=== PATIENT | male | born 1950 | race Caucasian/White ===

== ENCOUNTER 2022-01-08 13:50 | Inpatient (IN) | payer OTHER ==
[~2022-01-08] VITALS: Ht 188 cm; Wt 85.1 kg
[~2022-01-08 13:50] MED LIST: ALBU.083IS IH; ALBU90OI INH; BUDE200IP IH; BUDE6HFA; BUDE6HFA INH; CALCAVITD PO; CAPS28.3TC TP; CHLORTHALIDONE PO; CYCL10 PO; Colace100 MG PO; DOCU100 PO; FISH1000 PO; FLUO10 PO; Flomax0.4 MG PO; GUAI600T33 PO; HYDR1TAB94; Hair, Skin & N1 EACH PO; Ipratropium Bro30 ML INH; LOSA50 PO; Milk Of Ma400 MG/5 M PO; Mucinex600 MG; Norco 5-325 Ta1 EACH PO; Norvasc2.5 MG PO; OMEG1CAP30 PO; OSEL75CA PO; OXYACE5T PO; OXYC10ER PO; OXYC5 PO; PRED1SU BOTHEYES; PRED20 PO; RANI150 PO; SULTRIDS PO; Senna8.6 M1 PO; TAMS.4ER; TIOT18 IH; TIOT18 INH; VARE1 PO; VITAMIN B122500 MCG PO; ZOLP5 PO
[2022-01-08 14:30] LABS: BASOPHILS ABSOLUTE AUTO 0.04 K/mm3 (0.00-0.23); BASOPHILS PERCENT AUTO 0 % (0-2); EOSINOPHILS ABSOLUTE AUTO 0.45 K/mm3 (0.00-0.68); EOSINOPHILS PERCENT AUTO 3 % (0-6); Hematocrit 39.8 % (37.0-53.0); Hemoglobin 13.9 g/dL (13.5-17.5); IMMATURE GRAN ABSOLUTE AUTO 0.06 K/mm3 (0.00-0.10); IMMATURE GRAN PERCENT AUTO 1 % (0-1); LYMPHOCYTES ABSOLUTE AUTO 0.69 K/mm3 (0.84-5.20); LYMPHOCYTES PERCENT AUTO 5 % (21-46); MONOCYTES ABSOLUTE AUTO 0.93 K/mm3 (0.16-1.47); MONOCYTES PERCENT AUTO 7 % (4-13); Mean Corpuscular HGB 30.3 pg (26.0-34.0); Mean Corpuscular HGB Conc 34.9 g/dL (31.5-36.5); Mean Corpuscular Volume 87 fL (80-100); Mean Platelet Volume 9.3 fL (9.1-12.4); NEUTROPHILS ABSOLUTE AUTO 11.12 K/mm3 (1.96-9.15); NEUTROPHILS PERCENT AUTO 84 % (41-73); Platelet Count 344 K/mm3 (150-400); RDW Coefficient Variation 14.1 % (11.7-14.2); RDW Standard Deviation 45.1 fL (35.1-46.3); Red Blood Cell Count 4.58 M/mm3 (4.30-5.90); White Blood Cell Count 13.29 K/mm3 (4.00-11.30)
[2022-01-08 14:49] LABS: Albumin, Blood 3.1 g/dL (3.4-5.0); Albumin/Globulin Ratio 0.7 (0.8-1.8); Bilirubin, Total 0.9 mg/dL (0.1-1.0); Bun/Creatinine Ratio 25.3 (12.0-20.0); Creatinine, Blood 0.79 mg/dL (0.60-1.20); Globulin, Blood 4.7 g/dL (2.2-4.0); Potassium, Blood 3.5 mmol/L (3.5-5.5); Total Protein, Blood 7.8 g/dL (6.4-8.2)
[2022-01-08 16:10] LABS: Influenza A, PCR NEGATIVE (NEGATIVE); Influenza B, PCR NEGATIVE (NEGATIVE); Resp Syncytial Virus, PCR NEGATIVE (NEGATIVE); SARS-Cov-2 (COVID-19) PCR, MMC NEGATIVE (NEGATIVE)
[2022-01-08] MEDS ORDERED: ZOCOR20 MG PO (16:36)
[2022-01-08] MEDS ORDERED: Pulmicort Fle180 MCG INH ×2 (16:36→21:58)
[2022-01-08] MEDS ORDERED: AMLO5 PO (16:37)
[2022-01-08] MEDS ORDERED: TAMS.4ER PO (16:37)
[2022-01-08] MEDS ORDERED: ALBU2.5V5 INH (16:38)
[2022-01-08] MEDS ORDERED: OXAYDO5 M2 PO (16:38)
[2022-01-08] MEDS ORDERED: CALCIUM 250-D1 EAC1 PO (21:59)
[2022-01-08] MEDS ORDERED: CYCL10 PO (22:07)
[2022-01-08] MEDS ORDERED: DICLOFENAC SOD100 GM TOP (22:08)
[2022-01-08] MEDS ORDERED: LIDOCAINE15 GM TOP (22:10)
[2022-01-08] MEDS ORDERED: MELO7.5 PO (22:10)
[2022-01-09 05:20] LABS: BASOPHILS ABSOLUTE AUTO 0.03 K/mm3 (0.00-0.23); BASOPHILS PERCENT AUTO 0 % (0-2); EOSINOPHILS PERCENT AUTO 0 % (0-6); Hematocrit 39.3 % (37.0-53.0); Hemoglobin 13.5 g/dL (13.5-17.5); IMMATURE GRAN ABSOLUTE AUTO 0.06 K/mm3 (0.00-0.10); IMMATURE GRAN PERCENT AUTO 1 % (0-1); LYMPHOCYTES ABSOLUTE AUTO 0.65 K/mm3 (0.84-5.20); LYMPHOCYTES PERCENT AUTO 5 % (21-46); MONOCYTES ABSOLUTE AUTO 0.28 K/mm3 (0.16-1.47); MONOCYTES PERCENT AUTO 2 % (4-13); Mean Corpuscular HGB 29.9 pg (26.0-34.0); Mean Corpuscular HGB Conc 34.4 g/dL (31.5-36.5); Mean Corpuscular Volume 87 fL (80-100); Mean Platelet Volume 9.6 fL (9.1-12.4); NEUTROPHILS PERCENT AUTO 92 % (41-73); Platelet Count 359 K/mm3 (150-400); RDW Standard Deviation 44.9 fL (35.1-46.3); Red Blood Cell Count 4.51 M/mm3 (4.30-5.90); White Blood Cell Count 12.32 K/mm3 (4.00-11.30)
--- NOTE | 2022-01-09 05:30 | NUR ---
PRODUCTION WELDER SUMMARY ADMITTED FOR PNA AND SEPSIS. PT IS A FULL CODE. HE RECEIVED ONE BAG OF NS THAT COMPLETED THIS SHIFT. TWO DOSES OF IV STEROIDS GIVEN. PT IS BASELINE INDEPENDENT WITH HIS CANE BUT IS INCREASINGLY WEAK SO IS A SBA WITH FWW TO THE RESTROOM - I ENCOURAGED THE USE OF A URINAL DUE TO WORSENING SOB WITH AMBULATION. PT COUGHING UP CLEAR WHITE SPUTUM - SAMPLE SENT OFF. MEDICATED X1 FOR CHRONIC BODY PAIN. PATIENT RUNNING SINUS ON TELE. OXYGEN CURRENTLY AT 4L BY OH DUE TO INCREASED DEMAND WITH MOVEMENT. PT HAVING A DIFFICULT TIME SLEEPING THIS SHIFT.
--- NOTE | 2022-01-09 05:35 | NUR ---
SPUTUM SAMPLE CONTAMINATED - ANOTHER NEEDS TO BE OBTAINED.
[2022-01-09 05:56] LABS: Albumin, Blood 2.9 g/dL (3.4-5.0); Albumin/Globulin Ratio 0.6 (0.8-1.8); Bilirubin, Total 0.4 mg/dL (0.1-1.0); Bun/Creatinine Ratio 36.9 (12.0-20.0); Calcium, Blood 9.3 mg/dL (8.5-10.1); Creatinine, Blood 0.7 mg/dL (0.60-1.20); Globulin, Blood 4.7 g/dL (2.2-4.0); Potassium, Blood 3.5 mmol/L (3.5-5.5); Total Protein, Blood 7.6 g/dL (6.4-8.2)
--- NOTE | 2022-01-09 17:07 | NUR ---
PT IS A/OX4, PLEASANT AND COOPERATIVE. THE PT IS UP IND. THE PT IS ON O2 VIA NC @ 3L/MIN. THE PT HAS A HARSH DRY COUGH PRODUCTIVE AT TIMES. THE PT HAS SOB WITH LITTLE ACTIVITY AND HAS BEEN UP IN HIS ROOM FREQUANTLY. THE PT HAS SAT ON THE SIDE OF HIS BED T/O THE DAY. PT WAS MEDICATED FOR CHRONIC PAIN X1 TODAY. CALL LIGHT IN REACH. WILL CONTINUE TO MONITOR AND ASSESS FOR CHANGES
--- NOTE | 2022-01-10 06:20 | NUR ---
GUEST SERVICE HOST SUMMARY ADMITTED FOR COPD EXACERBATION. THE PATIENT IS FULL CODE. HE IS CURRENTLY ON 3L BY SD AND CONTINUES TO HAVE COUGHING FITS THROUGHOUT THE SHIFT BUT IS REFUSING ANY COUGH SYRUP. PT VERY ADAMANT ABOUT WALKING AROUND TO GET BETTER BUT WAS EDUCATED ON THE IMPORTANCE OF REST AND MEDICINE - PT GRUMBLING BUT AGREEABLE TO BE COOPERATIVE. HE REQUIRES A BED ALARM DUE TO BEING IMPULSIVE AND GETTING UP ALONE FREQUENTLY - PT LIKES TO SIT ON EDGE OF BED BUT AGREES TO PRESS CALL LIGHT IF HE NEEDS TO GET UP. PT OFFERED RECLINER TO SLEEP IN BUT HE DID NOT GET UP. HE IS ALERT AND ORIENTED X4. ONE PERSON ASSIST WITH FWW.
--- NOTE | 2022-01-10 16:00 | NUR ---
PT IS A/OX4, PLEASANT AND COOPERATIVE, UP WITH ASSIST. THE PT GETS VERY SOB WITH MINIMAL ACTIVITY. THE PT IS TREMOROUS, MAINTAING SAT'S >92% ON 2L/MIN O2 VIA NC AT THIS TIME. THE PT WAS MEDICATED FOR HARSH COUGH X 3 TODAY. THE PT WAS MEDICATED FOR PAIN X2. PT WAS GIVEN BREATHING TX'S T/O THE DAY AND WAS ENCOURAGED TO USE THE FLUTTER VALVE AND I/S T/O THE DAY. THE PT WAS ABLE TO TAKE 2 SHORT NAPS TODAY. CALL LIGHT IN REACH. WILL CONTINUE TO MONITOR AND ASSESS FOR CHANGES. THE PT WAS UP AMBULATING A SHORT DISTANCE IN HIS ROOM TODAY AND MAINTAINED SAT'S ABOVE 90% ON THE 2L/MIN O2.
--- NOTE | 2022-01-11 00:08 | NUR ---
01/10/222022 PT SITTING ON EDGE OF BED, REPORTS CHRONIC ALL OVER PAIN THAT IS A 5-6/10. WILL MEDICATE ORDERED AND EVAL FOR EFFECT. TRACE EDEMA IN LE'S. NONPRODUCTIVE OCCASIONAL COUGH. DENIES SOB BUT IS IN 2L NC AT 96%. TELE NSR AT 87. NO OTHER APPARENT SIGNS OF DISTRESS. CALL LIGHT IS IN REACH.
--- NOTE | 2022-01-11 01:00 | NUR ---
01/10/22 2349 CALLED AND GOT TUMS FOR HEARTBURN AND CEPACOL LOZENGES FOR HIS COUGH, ADMINISTERED, WILL EVAL FOR EFFECT. NO OTHER APPARENT SIGNS OF DISTRESS. CALL LIGHT IS IN REACH.
--- NOTE | 2022-01-11 04:39 | NUR ---
0200 PT SITTING ON EDGE OF BED AWAKE, DENIES ANY DISCOMFORT OR NEED FOR ANYTHING AT THIS TIME. NO APPARENT SIGNS OF DISTRESS. CALL LIGHT IS IN REACH.
--- NOTE | 2022-01-11 04:40 | NUR ---
0400 PT LYING IN BED, EYES CLOSED, WAKES EASILY TO VERBAL STIMULI. NO APPARENT SIGNS OF DISTRESS. CALL LIGHT IS IN REACH.
--- NOTE | 2022-01-11 04:40 | NUR ---
PT IS AAO X 4, ON 2L NC AT 96%. REPORTS CHRONIC PAIN ALL OVER, GOT ROXICODONE AT HS. TELE NSR. PT REPORTED HEART BURN, GOT TUMS. PT HAS NON PRODUCTIVE COUGH, GOT ROBITUSSIN, TESSALON PERLES AND CEPACOL LOZENGES. TRACE EDEMA IN LE'S. IS ON BEDSIDE TABLE.
[2022-01-11 05:13] LABS: BASOPHILS ABSOLUTE AUTO 0.05 K/mm3 (0.00-0.23); BASOPHILS PERCENT AUTO 0 % (0-2); EOSINOPHILS PERCENT AUTO 0 % (0-6); Hematocrit 36.7 % (37.0-53.0); Hemoglobin 12.4 g/dL (13.5-17.5); IMMATURE GRAN ABSOLUTE AUTO 0.33 K/mm3 (0.00-0.10); IMMATURE GRAN PERCENT AUTO 2 % (0-1); LYMPHOCYTES ABSOLUTE AUTO 0.98 K/mm3 (0.84-5.20); LYMPHOCYTES PERCENT AUTO 5 % (21-46); MONOCYTES ABSOLUTE AUTO 0.47 K/mm3 (0.16-1.47); MONOCYTES PERCENT AUTO 3 % (4-13); Mean Corpuscular HGB 29.8 pg (26.0-34.0); Mean Corpuscular HGB Conc 33.8 g/dL (31.5-36.5); Mean Corpuscular Volume 88 fL (80-100); Mean Platelet Volume 9.8 fL (9.1-12.4); NEUTROPHILS ABSOLUTE AUTO 17.21 K/mm3 (1.96-9.15); NEUTROPHILS PERCENT AUTO 90 % (41-73); Platelet Count 377 K/mm3 (150-400); RDW Coefficient Variation 14.2 % (11.7-14.2); RDW Standard Deviation 45.7 fL (35.1-46.3); Red Blood Cell Count 4.16 M/mm3 (4.30-5.90); White Blood Cell Count 19.04 K/mm3 (4.00-11.30)
[2022-01-11 05:26] LABS: Bun/Creatinine Ratio 35.8 (12.0-20.0); Calcium, Blood 9.3 mg/dL (8.5-10.1); Creatinine, Blood 0.64 mg/dL (0.60-1.20)
[2022-01-11] MEDS ORDERED: OMEGA-3 FISH O1 EAC6 PO (06:00)
--- NOTE | 2022-01-11 06:04 | NUR ---
PT SITTING ON EDGE OF BED, WATCHING TV. REQUESTED AND RECIEVED COFFEE. DENIES NEED FOR ANYTHING ELSE AT THIS TIME. REPORTS PAIN IS AT A 5/10 AND HE DOES NOT FEEL LIKE HE NEEDS PAIN MEDS AT THIS TIME. NO OTHER APPARENT SIGNS OF DISTRESS. CALL LIGHT IS IN REACH. NO OTHER CHANGES THIS SHIFT.
--- NOTE | 2022-01-11 11:32 | NUR ---
PATIENT HAS COUGH, HE DESCRIBES 2 COUGHS- ONE IS SHALLOW, DRY, NON PRODUCTIVE AND THE OTHER IS DEEP AND PRODUCTIVE. THE DEEP COUGH HAS GREEN THICK RETURN SPUTUM. WHEN HE STARTS TO (DEEP) COUGH, HE HAS A DIFFICULT TIME STOPPING- IT LASTS A WHLE LEAVING THE PAITENT SHORT OF BREATH AND TIRED OUT. LUNG SOUNDS ARE TIGHT-EXPIRIATORY WHEEZING. FIDELINA FROM HIS HOME CARE CALLED AND WAS GIVEN AN UPDATE. SHE ASKED THIS MANAGER RFID TO HAVE THE PATIENT CALL HER IF HE FINDS ANY NEW INFO. NUMBER TO CALL IS [phone].
--- NOTE | 2022-01-11 18:02 | NUR ---
Patient continues to cough with some sputum, green in color. RT has been providing treatments. abx was changed to Rocephin today and tolerated well. There was PT OT eval and treat in the system today. See nursing notes for further info.
--- NOTE | 2022-01-12 04:04 | NUR ---
SHIFT SUMMARY A/OX4, SBA WITH FWW. C/O CHRONIC BACK PAIN, MEDICATED PER EMAR. CURRENTLY ON 3L VIA NC WITH SATS GREATER THAN 90. HACKING, PRODUCTIVE COUGH WITH GREEN SPUTUM NOTED. WHEEZES T/O ALL LUNG SCHUSTER. VSS, NO ACUTE CHANGES AT THIS TIME. BED IN LOWEST POSITION WITH CALL LIGHT IN REACH. WILL CONTINUE TO MONITOR AND REPORT TO ONCOMING RN.
[2022-01-12 05:22] LABS: BASOPHILS ABSOLUTE AUTO 0.08 K/mm3 (0.00-0.23); BASOPHILS PERCENT AUTO 0 % (0-2); EOSINOPHILS PERCENT AUTO 0 % (0-6); Hematocrit 38.8 % (37.0-53.0); Hemoglobin 13.1 g/dL (13.5-17.5); IMMATURE GRAN ABSOLUTE AUTO 0.88 K/mm3 (0.00-0.10); IMMATURE GRAN PERCENT AUTO 5 % (0-1); LYMPHOCYTES ABSOLUTE AUTO 1.26 K/mm3 (0.84-5.20); LYMPHOCYTES PERCENT AUTO 7 % (21-46); MONOCYTES ABSOLUTE AUTO 0.66 K/mm3 (0.16-1.47); MONOCYTES PERCENT AUTO 4 % (4-13); Mean Corpuscular HGB 29.9 pg (26.0-34.0); Mean Corpuscular HGB Conc 33.8 g/dL (31.5-36.5); Mean Corpuscular Volume 89 fL (80-100); Mean Platelet Volume 9.8 fL (9.1-12.4); NEUTROPHILS ABSOLUTE AUTO 15.72 K/mm3 (1.96-9.15); NEUTROPHILS PERCENT AUTO 85 % (41-73); Platelet Count 440 K/mm3 (150-400); RDW Coefficient Variation 14.4 % (11.7-14.2); RDW Standard Deviation 46.4 fL (35.1-46.3); Red Blood Cell Count 4.38 M/mm3 (4.30-5.90)
[2022-01-12 05:49] LABS: Calcium, Blood 9.5 mg/dL (8.5-10.1); Creatinine, Blood 0.55 mg/dL (0.60-1.20); Potassium, Blood 4.1 mmol/L (3.5-5.5)
--- NOTE | 2022-01-12 16:14 | NUR ---
PATIENT CONTINUES TO COUGH AND RETURN GREEN SPUTUM. LS ARE TIGHT. EXPIRATORY WHEEZING. WBC IS GOING DOWN, BUT STILL ELEATED. PATIENT SHOWERED THIS AFTERNOON. HE REPORTS INCREASED SOB DURING SHOWER. TELE IS STILL IN PLACE. HE IS WORRIED ABOUT DISCHARGE BECAUSE ALEJANDRO PRINCE WAS MENTIONED TO HIM THIS MORNING AND HE IS NOT OKAY WITH THAT IDEA.
--- NOTE | 2022-01-12 18:27 | NUR ---
PATIENT REQUESTED YOGURT AFTER DINNER BECAUSE HE IS STARTING TO HAVE LOOSE STOOL FROM [facility]. THE PROVIDER WAS ALERTED AND ORDERED LACTOBACILLIS (VISBIOME) BID. FIRST DOSE WILL START TONIGHT.
--- NOTE | 2022-01-13 05:45 | NUR ---
PT IS A/O, SOB WITH EXERTION ON 3.5 L O2 VIA N/C, MEDICATED THIS SHIFT FOR ALLOVER PAIN AND COUGH. PT IS A . TELE MONITOR.
[2022-01-13 06:02] LABS: BASOPHILS ABSOLUTE AUTO 0.15 K/mm3 (0.00-0.23); BASOPHILS PERCENT AUTO 1 % (0-2); EOSINOPHILS PERCENT AUTO 0 % (0-6); Hematocrit 41.6 % (37.0-53.0); IMMATURE GRAN ABSOLUTE AUTO 1.91 K/mm3 (0.00-0.10); IMMATURE GRAN PERCENT AUTO 9 % (0-1); LYMPHOCYTES ABSOLUTE AUTO 1.95 K/mm3 (0.84-5.20); LYMPHOCYTES PERCENT AUTO 9 % (21-46); MONOCYTES ABSOLUTE AUTO 0.87 K/mm3 (0.16-1.47); MONOCYTES PERCENT AUTO 4 % (4-13); Mean Corpuscular HGB 29.8 pg (26.0-34.0); Mean Corpuscular HGB Conc 33.7 g/dL (31.5-36.5); Mean Corpuscular Volume 89 fL (80-100); Mean Platelet Volume 9.6 fL (9.1-12.4); NEUTROPHILS ABSOLUTE AUTO 17.01 K/mm3 (1.96-9.15); NEUTROPHILS PERCENT AUTO 78 % (41-73); Platelet Count 511 K/mm3 (150-400); RDW Coefficient Variation 14.2 % (11.7-14.2); RDW Standard Deviation 45.8 fL (35.1-46.3); White Blood Cell Count 21.89 K/mm3 (4.00-11.30)
[2022-01-13 06:23] LABS: Bun/Creatinine Ratio 38.7 (12.0-20.0); Creatinine, Blood 0.54 mg/dL (0.60-1.20); Potassium, Blood 4.4 mmol/L (3.5-5.5)
--- NOTE | 2022-01-13 18:27 | NUR ---
SHIFT SUMMARY PT HAS BEEN WORKING WITH PT OT AND RESPIRATORY TODAY. HIS WBC COUNTS IMPROVED AND IS HOPEFUL FOR HIS DISCHARGE TOMORROW. PT REQUIRED A HOME O2 EVAL AND REQUIRED 2L ON BASELINE. INFORMATION APSSED JOSE SALAZAR, O2, AND ADDITIONAL HOME HEALTH SET IN PLACE FOR PATIENTS HOME USE. HE IS FIRM ON THE WANT TO EXCERCISE AND HAS BEEN UP AND ABOUT IN HIS ROOM. HE EVEN TRAVELLED IN THE HALLWAYS, BUT HAD PERIOS OF BEING NON COMPLAINT WITH O2 AND WAS ENCOURAGED TO RETURN TO HIS ROOM. BED IN LOWEST POSITION AND CALL LIGHT WITHIN REACH.
[2022-01-14 04:36] LABS: Base Excess Venous 11.4 mmol/L; Bicarbonate Venous 34.3 mmol/L (24.0-30.0); PCO2 Venous 39.1 mmHg (38-42); pH Blood Venous 7.55 (7.34-7.37)
--- NOTE | 2022-01-14 05:29 | NUR ---
PT IS A/O, IND IN ROOM WITH FWW, 3.5 L O2 VIA N/C. POSSIBLE D/C TODAY, HH. COUGH NOTED.
--- NOTE | 2022-01-14 17:41 | NUR ---
SHIFT SUMMARY PT WAS MEANT TI DISCHARGE TODAY, BUT WAS CONCERNED OVER [facility]S AND DECIDED TO KEEP PT UNTIL TOMORROW. PT HAS BEEN UP AND AMBULATING. HE IS ANXIOUS ABOUT HOW HIS INSURANCE WILL WORK OUT PAYING FOR HIS OZ AND OTHER [employer] NEEDS. PT HAS STATED A DESIRE TO LEAVE AND GO OUTSIDE, BUT HAS BEEN ADVISED AGAINST THIS IS WILL NO ALLOW HIM TO RECIEVE THS SUPPLEIS HE NEEDS AND [facility] IF [facility] CHOOSES TO LEAVE [facility]. IS HOPEFUL HE WILL DISCHARGE TOMORROW. BED IN LOWEST POSITION AND LIGHT IN REACH.
[2022-01-15 05:00] LABS: Base Excess Venous 3.4 mmol/L; Bicarbonate Venous 27.2 mmol/L (24.0-30.0); PCO2 Venous 39.8 mmHg (38-42); pH Blood Venous 7.45 (7.34-7.37)
[2022-01-15 05:23] LABS: Bun/Creatinine Ratio 39.2 (12.0-20.0); Calcium, Blood 10.1 mg/dL (8.5-10.1); Creatinine, Blood 0.77 mg/dL (0.60-1.20); Potassium, Blood 3.9 mmol/L (3.5-5.5)
--- NOTE | 2022-01-15 05:25 | NUR ---
SHIFT SUMMARY AOX4. VSS. REPORTS CHRONIC PAIN ALLOVER BODY, MEDICATED 1X c 5MG ROXICODONE & PT ABLE TO REST WELL T/O NIGHT. DENIES N/V. REPORTS DYSPNEA c ACTIVITY. SPO2 >90% ON 2L O2. LS DIM c EXP WHEEZES T/O LOBES. E/U RESP. OCC NONPRODUCTIVE HARSH COUGH, TESSELON PERELS & GUIEFENESIN GIVEN PRN. REPORTS HEARTBURN/ACID REFLUX, MEDICATED c TUMS PER EMAR. CALL LIGHT IN REACH & PT ABLE TO MAKE NEEDS KNOWN. WILL MONITOR.
[2022-01-15] MEDS ORDERED: 1/2 NS 250ml250 ML (11:50)
[2022-01-15] MEDS ORDERED: NICO21TP TOP (12:05)
[2022-01-15] MEDS ORDERED: PRED20 PO (12:05)
--- NOTE | 2022-01-15 12:25 | NUR ---
PT DISCHAGRED AT 1210. PAPERWORK GONE OVER. IVV DC'S EQUIPMENT BROUGHT BY [facility]. PT DISCHARGED BY WHEELCHAIR
== END 2022-01-15 12:15 | disposition home or self-care (01) | DRG 193 ==
LOC: ER 13:50 → EDBEDREQSVC 17:07 → EDBEDREQ 17:07 → MEDS 17:23
PROVIDERS: Emergency Medicine; Internal Medicine; ADMIT Internal Medicine
DX: J18.9 Pneumonia, unspecified organism (principal); J96.21 Acute and chronic respiratory failure with hypoxia; J96.22 Acute and chronic respiratory failure with hypercapnia; J44.1 Chronic obstructive pulmonary disease with (acute) exacerbation; E87.3 Alkalosis; E87.1 Hypo-osmolality and hyponatremia; J44.0 Chronic obstructive pulmonary disease with (acute) lower respiratory infection; I10 Essential (primary) hypertension; M54.9 Dorsalgia, unspecified; M81.0 Age-related osteoporosis without current pathological fracture; G62.9 Polyneuropathy, unspecified; Z20.822 Contact with and (suspected) exposure to COVID-19; F17.210 Nicotine dependence, cigarettes, uncomplicated; G89.29 Other chronic pain; N40.0 Benign prostatic hyperplasia without lower urinary tract symptoms; Z71.6 Tobacco abuse counseling; Z98.890 Other specified postprocedural states; Z79.52 Long term (current) use of systemic steroids; Z79.899 Other long term (current) drug therapy; Z99.81 Dependence on supplemental oxygen
CPT/HCPCS: 0241U; 36415; 71045; 71046; 80048; 80053; 82803; 83605; 84484; 85025; 87040; 87070; 87205; 93005; 93010; 94640; 94664; 94760; 94761; 94762; 96361; 96365; 96372; 96375; 97110; 97116; 97161; 97165; 97530; 97535; 99285-25; A9270; J0456; J0696; J1650; J2930; J3475; J7030; J7050; J7512